=== PATIENT | male | born 1955 | race Caucasian/White ===

== ENCOUNTER 2016-12-11 04:47 | Emergency (ER) | payer OTHER ==
[~2016-12-11] VITALS: Ht 180.3 cm; Wt 92.5 kg
[~2016-12-11 04:47] MED LIST: CALC250 PO; DOCU1CAP39 PO; HYDR-3580 PO; NEXI10GR PO; XARE10TA PO
[2016-12-11 04:53] VITALS: BP 195/106; PULSE 77; RESP 18; TEMP 98.4; O2SAT 98
[2016-12-11] MEDS ORDERED: NAPR220C22 PO (05:02)
[2016-12-11 05:03] VITALS: BP 179/93; PULSE 75; RESP 18; O2SAT 97
[2016-12-11 05:13] VITALS: RESP 18; O2SAT 100
[2016-12-11] MEDS ORDERED: SODIUM CHLORID 0.9% 500 ML INJ 500 ML IV ONE (05:15)
[2016-12-11] MEDS ORDERED: SODIUM CHLORIDE 0.9% FLUSH 10 ML FLUSH IVF PRN (05:15)
--- NOTE | 2016-12-11 05:19 | PD ---
HPI Chief Complaint: Dizziness Time Seen by Provider: 05:14 Travel History International Travel<30 days: No Contact w/Intl Traveler<30days: No Traveled to known affect area: No History of Present Illness HPI 61-year-old male presents to the emergency department from his condo EMS transport for complaint of awakening with dizziness shortness of breath nausea and upset stomach. Patient states that he walked around his condo and did not feel better so called 911 to transport him to the hospital. Patient reports en route to the hospital patient's symptoms resolved and he feels much improved. Patient states he did take Pepto-Bismol in his apartment parking him to the emergency room. Patient has history of borderline hypertension and reported history of stable 2.7 cm abdominal aortic aneurysm. Patient does not report any ripping tearing pain into the chest or into the abdomen. Patient denies any back pain. Patient has had no recent long distance travel. Patient was recently seen by his door operator to monitors his blood pressure and his aneurysm and everything was okay. Patient does admit to tobacco use and alcohol use. Patient drank 9 shots of vodka and eat pizza prior to going to bed last night. Patient is visiting the area by himself. Patient denies other concerns or complaints. Patient denies any focal upper extremity or lower extremity numbness tingling or weakness. Patient denies any visual disturbance. Patient denies headache. Patient denies any change in speech. PFSH Past Medical History Narrative Medical Hypertension, arthritis, GERD, abdominal aortic aneurysm; alcohol use tobacco use; nursing notes reviewed Arthritis: Yes Cancer: No Cardiovascular Problems: Yes (SMALL AAA-STABLE AT 2.7CM) Diminished Hearing: No Endocrine: No GERD: Yes Genitourinary: No Hypertension: Yes Immune Disorder: No Musculoskeletal: Yes Neurologic: No Psychiatric: No Reproductive: No Respiratory: No Tetanus Vaccination: Unknown Influenza Vaccination: No Social History Alcohol Use: Yes (6PPW) Tobacco Use: Yes (1PPD) Substance Use: No Allergies-Medications (Allergen,Severity, Reaction): Coded Allergies: Cipro (Unverified Allergy, Severe, Itching, 12/15/13) Reported Meds & Prescriptions Reported Meds & Active Scripts Active Reported Aleve (Naproxen Sodium) 220 Mg Capsule 2 Cap PO DAILY Review of Systems Except as stated in HPI: all other systems reviewed are Neg General / Constitutional: No: Fever, Chills HENT: No: Congestion Cardiovascular: No: Chest Pain or Discomfort Respiratory: Positive: Shortness of Breath Gastrointestinal: Positive: Nausea, No: Abdominal Pain Genitourinary: No: Flank Pain Musculoskeletal: No: Myalgias, Arthralgias Skin: No Rash Neurologic: Positive: Dizziness, No: Weakness, Syncope, Focal Abnormalities, Coordination Problem Psychiatric: Positive: Anxiety Hematologic/Lymphatic: No: Easy Bruising Physical Exam Narrative GENERAL: Well-developed well-nourished female in no acute distress no respiratory distress SKIN: Warm and dry. HEAD: Atraumatic. Normocephalic. EYES: Pupils equal and round. No scleral icterus. No injection or drainage. ENT: No nasal bleeding or discharge. Mucous membranes pink and moist. NECK: Trachea midline. No JVD. CARDIOVASCULAR: Regular rate and rhythm. RESPIRATORY: No accessory muscle use. Clear to auscultation. Breath sounds equal bilaterally. GASTROINTESTINAL: Abdomen soft, non-tender, nondistended. Hepatic and splenic margins not palpable. MUSCULOSKELETAL: Extremities without clubbing, cyanosis, or edema. No obvious deformities. Radial and dorsalis pedis pulses 2+ to palpation bilaterally NEUROLOGICAL: Awake and alert. No obvious cranial nerve deficits. Motor grossly within normal limits. Five out of 5 muscle strength in the arms and legs. No pronator drift. Sensory exam intact grossly. No limb ataxia. Normal speech. PSYCHIATRIC: Appropriate mood and affect; insight and judgment normal. Data Data Last Documented VS Vital Signs Date Time Temp Pulse Resp B/P Pulse Ox O2 Delivery O2 Flow Rate FiO2 12/11/16 05:24 170/80 12/11/16 05:23 99 Room Air 12/11/16 05:13 18 12/11/16 05:03 75 2 12/11/16 04:53 98.4 Orders Electrocardiogram (12/11/16 05:14) Basic Metabolic Panel (Bmp) (12/11/16 05:14) Complete Blood Count With Diff (12/11/16 05:14) Magnesium (Mg) (12/11/16 05:14) Ckmb (Isoenzyme) Profile (12/11/16 05:14) Troponin I (12/11/16 05:14) Chest, Single Ap (12/11/16 05:14) Blood Glucose (12/11/16 05:14) Ecg Monitoring (12/11/16 05:14) Iv Access Insert/Monitor (12/11/16 05:14) Oximetry (12/11/16 05:14) Sodium Chloride 0.9% Flush (Ns Flush) (12/11/16 05:15) Orthostatic Vital Signs (12/11/16 05:14) Sodium Chlorid 0.9% 500 Ml Inj (Ns 500 M (12/11/16 05:15) Alcohol (Ethanol) (12/11/16 05:14) CKMB (12/11/16 05:20) CKMB% (12/11/16 05:20) Labs Laboratory Tests Test 12/11/16 05:20 White Blood Count 6.6 TH/MM3 Red Blood Count 5.18 MIL/MM3 Hemoglobin 15.8 GM/DL Hematocrit 46.0 % Mean Corpuscular Volume 88.9 FL Mean Corpuscular Hemoglobin 30.4 PG Mean Corpuscular Hemoglobin 34.2 % Concent Red Cell Distribution Width 14.0 % Platelet Count 161 TH/MM3 Mean Platelet Volume 9.0 FL Neutrophils (%) (Auto) 57.2 % Lymphocytes (%) (Auto) 30.7 % Monocytes (%) (Auto) 9.9 % Eosinophils (%) (Auto) 1.9 % Basophils (%) (Auto) 0.3 % Neutrophils # (Auto) 3.8 TH/MM3 Lymphocytes # (Auto) 2.0 TH/MM3 Monocytes # (Auto) 0.7 TH/MM3 Eosinophils # (Auto) 0.1 TH/MM3 Basophils # (Auto) 0.0 TH/MM3 CBC Comment DIFF FINAL Differential Comment Sodium Level 144 MEQ/L Potassium Level 3.9 MEQ/L Chloride Level 110 MEQ/L Carbon Dioxide Level 26.9 MEQ/L Anion Gap 7 MEQ/L Blood Urea Nitrogen 15 MG/DL Creatinine 0.74 MG/DL Estimat Glomerular Filtration 108 ML/MIN Rate Random Glucose 109 MG/DL Calcium Level 8.7 MG/DL Magnesium Level 2.2 MG/DL Total Creatine Kinase 240 U/L Creatine Kinase MB 2.9 NG/ML Troponin I LESS THAN 0.02 NG/ML Ethyl Alcohol Level LESS THAN 3 MG/DL MDM Medical Decision Making Medical Screen Exam Complete: Yes Emergency Medical Condition: Yes Medical Record Reviewed: Yes Interpretation(s) EKG: normal sinus rhythm rate 75 and a ventricular conduction delay no acute ST elevation or injury pattern this is noted on prior EKG: Differential Diagnosis Dizziness, TIA, CVA, arrhythmia, electronic disturbance, viral syndrome, alcohol intoxication, ACS, [place], abdominal aortic aneurysm rupture, GERD Narrative Course Patient placed on media monitor IV access obtained specimens collected and sent for resulting EKG performed which reveals no acute ST elevation or injury pattern change Patient aware plan for imaging study cardiac enzymes and possible imaging of the abdomen and pelvis It is 5:34 AM and patient refuses to undergo CT brain noncontrast Informed by patient's nurse that he has decided to sign out AGAINST MEDICAL ADVICE and did not have any further testing or diagnostics performed. Patient reportedly reported to the nurse that he feels well and does not want any further evaluation. Patient unwilling to wait for me to discuss with him risks of leaving AGAINST MEDICAL ADVICE and benefit of staying for completion of evaluation. Diagnosis Primary Impression: Left against medical advice Additional Instructions: AMA Disposition: 07 AGAINST MEDICAL ADVICE Condition: Stable Fabiana Barrios MD Dec 11, 2016 05:19
[2016-12-11 05:23] VITALS: O2SAT 99
[2016-12-11 05:24] VITALS: BP 170/80
--- NOTE | 2016-12-11 05:53 | RADRPT ---
EXAM DATE/TIME: 12/11/2016 05:29 [facility] COMPARISON: CHEST SINGLE AP, December 15, 2013, 23:52. INDICATIONS : Shortness of breath with wheezing and dizziness. MEDICAL HISTORY : None. SURGICAL HISTORY : None. ENCOUNTER: Initial ACUITY: 1 day PAIN SCORE: 5/10 LOCATION: Bilateral chest FINDINGS: A single view of the chest demonstrates the lungs to be symmetrically aerated without evidence of mas s, infiltrate or effusion. The cardiomediastinal contours are unremarkable. Osseous structures are intact. CONCLUSION: Normal examination. Anton Ramirez MD on December 11, 2016 at 5:51 Board Certified Radiologist. This report was verified electronically.
[2016-12-11 05:56] LABS: AUTOMATED NEUTROPHIL # 3.8 TH/MM3 (1.8-7.7); BASOPHIL % 0.3 % (0.0-2.0); EOSINOPHIL # 0.1 TH/MM3 (0-0.4); EOSINOPHIL % 1.9 % (0.0-4.0); HEMO FLAGS DIFF FINAL; LYMPH % 30.7 % (9.0-44.0); MEAN CELL VOLUME 88.9 FL (80.0-100.0); MEAN CORPUSCULAR HEMOGLOBIN 30.4 PG (27.0-34.0); MEAN CORPUSCULAR HGB CONC 34.2 % (32.0-36.0); MONO % 9.9 % (0.0-8.0); NEUT % 57.2 % (16.0-70.0); PLATELET COUNT 161 TH/MM3 (150-450); RED BLOOD COUNT 5.18 MIL/MM3 (4.50-5.90); WHITE BLOOD COUNT 6.6 TH/MM3 (4.0-11.0)
[2016-12-11 06:26] LABS: ANION GAP 7 MEQ/L (5-15); BICARBONATE 26.9 MEQ/L (21.0-32.0); BLOOD UREA NITROGEN 15 MG/DL (7-18); CHLORIDE 110 MEQ/L (98-107); GLOMERULAR FILTRATION RATE 108 ML/MIN (>89); MAGNESIUM 2.2 MG/DL (1.5-2.5); POTASSIUM 3.9 MEQ/L (3.5-5.1); SODIUM (NA) 144 MEQ/L (136-145)
[2016-12-11 06:31] LABS: CREATINE KINASE 240 U/L (39-308)
[2016-12-11 06:44] LABS: CKMB 2.9 NG/ML (0.5-3.6)
--- NOTE | 2016-12-11 13:26 | EKG ---
Date Performed: 12/11/2016 Time Performed: 05:00:40 PTAGE: 61 years EKG: Sinus rhythm MODERATE INTRAVENTRICULAR CONDUCTION DELAY BORDERLINE ECG PREVIOUS TRACING : 12/16/2013 00.41 Compared to prior tracing no significant change DOCTOR: Beulah Aleman Interpretating Date/Time 12/11/2016 13:20:44
== END 2016-12-11 05:55 | disposition left against medical advice (07) ==
LOC: NEPC 04:47
DX: R42 Dizziness and giddiness (principal); R06.02 Shortness of breath; R11.0 Nausea; I10 Essential (primary) hypertension; I71.4 Abdominal aortic aneurysm, without rupture; F17.200 Nicotine dependence, unspecified, uncomplicated
CPT/HCPCS: 71010; 80048; 80307; 82550; 82552; 83735; 84484; 85025; 93005; 99285; J7040